=== PATIENT | male | born 1980 | race Caucasian/White ===

== ENCOUNTER → 2018-02-19 | Outpatient (CLI) | payer OTHER ==
[~2018-02-19] VITALS: Ht 180.3 cm; Wt 77.3 kg
[~2018-02-19] MED LIST: PRINIVIL20 MG PO
[2018-02-19 06:25] VITALS: BP 143/89; PULSE 70
[2018-02-19 08:15] VITALS: BP 136/84; PULSE 67
[2018-02-19 08:16] VITALS: BP 136/84; PULSE 62
== END ==
LOC: COL.RAD 06:05
DX: M47.892 Other spondylosis, cervical region (principal); M54.12 Radiculopathy, cervical region; Z79.899 Other long term (current) drug therapy
CPT/HCPCS: J1100